=== PATIENT | male | born 1970 ===

== ENCOUNTER 2018-04-05 18:15 | Inpatient (IN) | payer OTHER ==
[2018-04-05 19:11] VITALS: BMI 23.6
[2018-04-05] MEDS ORDERED: Sodium Chloride 0.9% 1,000 ML IV STA ×2 (19:34→20:56)
[2018-04-05] MEDS ORDERED: Piperacill/Tazo 4.5gm in NS 4.5 GM/100 ML BAG IVPB STA (19:34)
[2018-04-05] MEDS ORDERED: Morphine 4 mg/ml ISec IVP STA (19:34)
--- NOTE | 2018-04-05 19:35 | ED PDOC ---
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 Patient stated while using a high pressure water gun, he accidentally sprayed right inner mid thigh. Patient stated wound is very painful. Last tetanus is UKN. Patient denies other somatic complains. Time/Duration: Other (see hpi) Context: Work Past Medical History - Provider Review Nursing Documentation Reviewed: Yes - Psychiatric Hx Substance Use: No Family/Social History - Physician Review Nursing Documentation Reviewed: Yes Family/Social History: Other (noncontributory) Smoking Status: Current Some Days Smoker Hx Alcohol Use: Yes Frequency of alcohol use: Few days per week Hx Substance Use: No Allergies/Home Meds Allergies/Adverse Reactions: Allergies No Known Allergies Allergy (Verified 04/05/18 19:11) Home Medications: Home Meds Medication Instructions Recorded Confirmed No Known Home Med 04/05/18 04/05/18 Review of Systems - Review of Systems Constitutional: Normal. absent: Fatigue, Weight Change, Fevers Eyes: Normal ENT: Normal Respiratory: Normal Cardiovascular: Normal Gastrointestinal: Normal Genitourinary Male: Normal Musculoskeletal: Other (see hpi) Skin: Normal Neurological: Normal Endocrine: Normal Hemo/Lymphatic: Normal Psychiatric: Normal Physical Exam Vital Signs Temp Pulse Resp BP Pulse Ox 04/06/18 03:30 98.6 F 62 16 118/72 99 04/06/18 03:20 98.6 F 62 18 118/72 100 04/06/18 02:35 63 16 115/70 99 04/06/18 01:54 62 18 114/75 97 04/05/18 22:07 98.7 F 77 20 135/83 97 04/05/18 19:28 98.6 F 89 20 135/78 97 Temperature: Afebrile Blood Pressure: Normal Pulse: Regular Respiratory Rate: Normal Appearance: Positive for: Well-Appearing, Non-Toxic, Comfortable Pain Distress: None Mental Status: Positive for: Alert and Oriented X 3 - Systems Exam Head: Present: Atraumatic, Normocephalic Pupils: Present: PERRL Extroacular Muscles: Present: EOMI Conjunctiva: Present: Normal Neck: Present: Normal Range of Motion Respiratory/Chest: Present: Clear to Auscultation, Good Air Exchange. No: Rales , Retracting, Rhonchi Cardiovascular: Present: Regular Rate and Rhythm, Normal S1, S2. No: Murmurs Back: Present: Normal Inspection Upper Extremity: Present: Normal Inspection, Normal ROM Lower Extremity: Present: NORMAL PULSES, Normal ROM, Neurovascularly Intact, Capillary Refill < 2 s, Other (Right mid inner thigh pucture wound, with surrounding hematoma. No compatment syndrome. Tender on palpation. No actively bleeding. Pedist pulses +2, b/l). No: Edema, CALF TENDERNESS Neurological: Present: GCS=15, CN II-XII Intact, Speech Normal, Motor Func Grossly Intact, Normal Sensory Function, Normal Cerebellar Funct, Gait Normal, Memory Normal Skin: Present: Warm, Dry, Normal Color. No: Rashes Psychiatric: Present: Alert, Oriented x 3, Normal Insight, Normal Concentration Medical Decision Making ED Course and Treatment: 04/06/18 00:[address] Carrasco surgical aides teacher regarding thigh injury. Pending CT scan result. She stated she will come to ED to evaluate pt. 04/06/18 00:39 residential appliance repair technician at patient's bedside 04/06/18 01:01 I spoke with medical affairs leader regarding patient injury, and I recommended observation. Re-evaluation Time: 01:08 Reassessment Condition: Re-examined, Improving,but remains with symptoms - Lab Interpretations Microbiology Results: Microbiology Results 04/06/18 12:30 Thigh - Right Gram Stain - Final 04/06/18 12:30 Thigh - Right Wound Culture - Preliminary NO GROWTH AFTER 24 HOURS 04/05/18 20:55 Blood Blood Culture - Preliminary NO GROWTH AFTER 24 HOURS 04/05/18 20:05 Blood Blood Culture - Preliminary NO GROWTH AFTER 24 HOURS Lab Results: 04/06/18 06:20 04/06/18 07:30 Lab Results 04/06/18 11:42: POC Glucose (mg/dL) 197 H 04/06/18 08:00: Total Creatine Kinase 307 H, CK-MB (CK-2) 1.2, CK-MB (CK-2) % Cancelled 04/06/18 07:30: Sodium 138, Potassium 3.7, Chloride 106, Carbon Dioxide 25, Anion Gap 11, BUN 11, Creatinine 0.6 L, Est GFR ( Amer) > 60, Est GFR ( Non-Af Amer) > 60, Random Glucose 225 H, Calcium 8.0 L, Phosphorus 2.7, Magnesium 1.9, Total Bilirubin 0.5, AST 22, ALT 29, Alkaline Phosphatase 108, Total Protein 6.2, Albumin 3.4, Globulin 2.7, Albumin/Globulin Ratio 1.3, Triglycerides 133, Cholesterol 187, LDL Cholesterol Direct 129, HDL Cholesterol 30 04/06/18 07:05: POC Glucose (mg/dL) 230 H 04/06/18 06:20: WBC 7.7 D, RBC 4.21, Hgb 12.9 L D, Hct 36.9 L, MCV 87.6, MCH 30.6, MCHC 35.0, RDW 13.0, Plt Count 176, MPV 10.6, Gran % 59.8, Lymph % (Auto) 32.2, [place] % (Auto) 5.7, Eos % (Auto) 2.2, Baso % (Auto) 0.1, Gran # 4.57, Lymph # (Auto) 2.5, [place] # (Auto) 0.4, Eos # (Auto) 0.2, Baso # (Auto) 0.01 04/06/18 06:20: Hemoglobin A1c 11.9 H 04/06/18 06:20: Procalcitonin 0.06 L 04/06/18 02:46: POC Glucose (mg/dL) 197 H 04/06/18 00:43: POC Glucose (mg/dL) 219 H 04/05/18 20:05: Sodium 136, Potassium 3.9, Chloride 100, Carbon Dioxide 21, Anion Gap 19, BUN 15, Creatinine 0.6 L, Est GFR ( Amer) > 60, Est GFR ( Non-Af Amer) > 60, Random Glucose 328 H*, Calcium 9.4, Magnesium 1.9, Total Bilirubin 0.5, AST 25, ALT 36, Alkaline Phosphatase 161 H, Total Creatine Kinase 356 H, CK-MB (CK-2) 1.4, CK-MB (CK-2) % Cancelled, Total Protein 8.1, Albumin 4.6, Globulin 3.5, Albumin/Globulin Ratio 1.3 04/05/18 20:05: WBC 14.5 H, RBC 4.83, Hgb 15.4, Hct 42.0, MCV 87.0, MCH 31.9, MCHC 36.7, RDW 12.8, Plt Count 205, MPV 10.6, Gran % 82.4 H, Lymph % (Auto) 12.4 L, [place] % (Auto) 4.8, Eos % (Auto) 0.3 L, Baso % (Auto) 0.1, Gran # 11.91 H , Lymph # (Auto) 1.8, [place] # (Auto) 0.7 H, Eos # (Auto) 0.0, Baso # (Auto) 0.02 I have reviewed the lab results: Yes Interpretation: Abnormal lab values (Glucose is elevated) - RAD Interpretation Narrative RAD Interpretations (Text): 04/06/18 01:12 FINDINGS: Bones/joints: No acute findings. No acute fracture. No dislocation. Soft tissues: There is soft tissue gas at the lateral, dorsal, and medial aspects of the distal portions of the vastus medialis muscle. No focal fluid. IMPRESSION: There is soft tissue gas at the lateral, dorsal, and medial aspects of the distal portions of the vastus medialis muscle. No focal fluid. The images do not extend to the level of the knee. Radiology Orders: 04/05/18 19:32 EXT LOWER WITH CONTRAST RIGHT [CT] Stat - Medication Orders Current Medication Orders: Bacitracin (Bacitracin) 1 gm TOP Q12H [facility] Last Admin: 04/07/18 07:46 Dose: 1 applic Comments: Applied by surgical aides teacher Famotidine (Pepcid) 20 mg PO 1000,2200 [facility] Last Admin: 04/07/18 09:05 Dose: 20 mg Glipizide (Glucotrol) 5 mg PO ACB [facility] Last Admin: 04/07/18 10:43 Dose: 5 mg Heparin Sodium (Porcine) (Heparin) 5,000 units SC Q12 [facility] PRN Reason: Protocol Last Admin: 04/07/18 09:05 Dose: 5,000 units Subcutaneous Administrations Document 04/07/18 09:05 IFRAH (Rec: 04/07/18 09:05 IFRAH [id number]) Injection Site MAR Injection Site Right Abdomen Charges for Administration # of Subcutaneous Administrations 1 Piperacillin Sod/Tazobactam Sod (Zosyn 3.375 In Ns 100ml) 100 mls @ 200 mls/hr IVPB Q6 [facility] PRN Reason: Protocol Stop: 04/13/18 18:01 Last Admin: 04/07/18 11:36 Dose: 200 mls/hr eMAR Start Stop Document 04/07/18 11:36 IFRAH (Rec: 04/07/18 11:36 IFRAH [id number]) Intravenous Solution Start Date 04/07/18 Start Time 11:36 Vancomycin HCl (Vancomycin 1gm) 1 gm in 250 mls @ 167 mls/hr IVPB Q12 [facility] PRN Reason: Protocol Last Admin: 04/07/18 09:04 Dose: 167 mls/hr eMAR Start Stop Document 04/07/18 09:04 IFRAH (Rec: 04/07/18 09:04 IFRAH [id number]) Intravenous Solution Start Date 04/07/18 Start Time 09:04 Insulin Human Regular (Humulin R Med) 0 units SC ACHS [facility] PRN Reason: Protocol Last Admin: 04/07/18 11:36 Dose: 3 units [facility] Blood Glucose Document 04/07/18 11:36 IFRAH (Rec: 04/07/18 11:37 IFRA[id number]) Blood Glucose Finger Stick Blood Glucose (70-120) 238 Subcutaneous Administrations Document 04/07/18 11:36 IFRAH (Rec: 04/07/18 11:37 [id number]) Injection Site MAR Injection Site Left Arm Charges for Administration # of Subcutaneous Administrations 1 Oxycodone/Acetaminophen (Percocet 5/325 Mg Tab) 1 tab PO Q4H PRN PRN Reason: Pain, moderate (4-7) Stop: 04/09/18 20:03 Last Admin: 04/07/18 08:39 Dose: 1 tab MAR Pain Assessment Document 04/07/18 08:39 IFRAH (Rec: 04/07/18 08:40 [id number]) Pain Reassessment Is this a pain reassessment? No Presence of Pain Presence of Pain Yes Pain Scale Used Pain Scale Used Numeric Location Left, Right or Bilateral Right Pain Location Body Site Thigh Description Description Intermittent Intensity of Pain at present 7 Re-Assess: MAR Pain Assessment Document 04/07/18 09:39 IFRAH (Rec: 04/07/18 11:37 IF[id number]) Pain Reassessment Is this a pain reassessment? Yes Presence of Pain Presence of Pain No Discontinued Medications Bupivacaine HCl/Epinephrine Bitart (Marcaine-Epi 0.25%) 20 ml IJ ONCE ONE Stop: 04/06/18 09:13 Sodium Chloride (Sodium Chloride 0.9%) 1,000 mls @ 999 mls/hr IV .Q1H1M STA Stop: 04/05/18 20:34 Last Admin: 04/05/18 20:08 Dose: 999 mls/hr eMAR Start Stop Document 04/05/18 20:08 RG (Rec: 04/05/18 20:[address] [id number]) Intravenous Solution Start Date 04/05/18 Start Time 20:08 Piperacillin Sod/Tazobactam Sod (Zosyn 4.5 Gm In Ns 100ml) 4.5 gm in 100 mls @ 200 mls/hr IVPB STAT STA PRN Reason: Protocol Stop: 04/05/18 20:03 Last Admin: 04/05/18 20:06 Dose: 200 mls/hr eMAR Start Stop Document 04/05/18 20:06 RG (Rec: 04/05/18 20:[address] [id number]) Intravenous Solution Start Date 04/05/18 Start Time 20:05 Sodium Chloride (Sodium Chloride 0.9%) 1,000 mls @ 999 mls/hr IV .Q1H1M STA Stop: 04/05/18 21:56 Last Admin: 04/05/18 21:00 Dose: 999 mls/hr eMAR Start Stop Document 04/05/18 21:00 RG (Rec: 04/06/18 02:[address] [id number]) Intravenous Solution Start Date 04/06/18 Start Time 21:00 End Date 04/06/18 End time 22:00 Total Infusion Time 60 Sodium Chloride (Sodium Chloride 0.9%) 1,000 mls @ 100 mls/hr IV .Q10H [facility] Last Admin: 04/06/18 17:05 Dose: 100 mls/hr eMAR Start Stop Document 04/06/18 17:05 SD (Rec: 04/06/18 17:05 SD [id number]) Intravenous Solution Start Date 04/06/18 Start Time 17:05 Vancomycin HCl (Vancomycin 1gm) 1 gm in 250 mls @ 167 mls/hr IVPB DAILY [facility] PRN Reason: Protocol Last Admin: 04/06/18 09:06 Dose: 167 mls/hr eMAR Start Stop Document 04/06/18 09:06 SD (Rec: 04/06/18 09:06 [id number] Intravenous Solution Start Date 04/06/18 Start Time 09:06 End Date 04/06/18 End time 10:36 Total Infusion Time 90 Piperacillin Sod/Tazobactam Sod (Zosyn 3.375 In Ns 100ml) 100 mls @ 200 mls/hr IVPB Q6H [facility] PRN Reason: Protocol Stop: 04/06/18 08:59 Last Admin: 04/06/18 07:49 Dose: 200 mls/hr eMAR Start Stop Document 04/06/18 07:49 SD (Rec: 04/06/18 07:50 SD [id number]) Intravenous Solution Start Date 04/06/18 Start Time 07:49 End Date 04/06/18 End time 08:20 Total Infusion Time 31 Insulin Human Lispro (Humalog) 3 units SC ONCE ONE Stop: 04/06/18 07:30 Last Admin: 04/06/18 07:45 Dose: 3 units MAR Blood Glucose Document 04/06/18 07:45 SD (Rec: 04/06/18 07:45 [id number] Blood Glucose Finger Stick Blood Glucose (70-120) 230 Subcutaneous Administrations Document 04/06/18 07:45 SD (Rec: 04/06/18 07:45 [id number]) Injection Site MAR Injection Site Left Arm Charges for Administration # of Subcutaneous Administrations 1 Morphine Sulfate (Morphine) 4 mg IVP STAT STA Stop: 04/05/18 19:35 Last Admin: 04/05/18 20:00 Dose: 4 mg MAR Pain Assessment Document 04/05/18 20:00 RG (Rec: 04/05/18 20:06 [id number]) Pain Reassessment Is this a pain reassessment? Yes Sleep Is patient sleeping during reassessment? No Presence of Pain Presence of Pain Yes Pain Scale Used Pain Scale Used Numeric Location Left, Right or Bilateral Right Pain Location Body Site Leg Description Description Constant Intensity of Pain at present 7 Pain Behavior Moaning Withdrawal from Touch IVP Administration Document 04/05/18 20:00 RG (Rec: 04/05/18 20:[address] [id number]) Charges for Administration # of IVP Administrations 1 Re-Assess: [facility] Pain Assessment Document 04/05/18 21:00 RG (Rec: 04/05/18 21:[address] [id number]) Pain Reassessment Is this a pain reassessment? Yes Sleep Is patient sleeping during reassessment? Yes Morphine Sulfate (Morphine) 2 mg IVP Q4H PRN PRN Reason: Pain, moderate (4-7) Last Admin: 04/06/18 09:59 Dose: 2 mg [facility] Pain Assessment Document 04/06/18 09:59 SD (Rec: 04/06/18 10:02 SD [id number]) Pain Reassessment Is this a pain reassessment? No Presence of Pain Presence of Pain Yes Pain Scale Used Pain Scale Used Numeric Location Left, Right or Bilateral Right Pain Location Body Site Thigh Description Description Intermittent Intensity of Pain at present 4 IVP Administration Document 04/06/18 09:59 SD (Rec: 04/06/18 10:02 SD [id number]) Charges for Administration # of IVP Administrations 1 Re-Assess: [facility] Pain Assessment Document 04/06/18 10:59 SD (Rec: 04/06/18 11:26 SD [id number]) Pain Reassessment Is this a pain reassessment? Yes Sleep Is patient sleeping during reassessment? Yes Ondansetron HCl (Zofran Inj) 4 mg IVP STAT STA Stop: 04/05/18 19:36 Last Admin: 04/05/18 20:01 Dose: 4 mg IVP Administration Document 04/05/18 20:01 (Rec: 04/05/18 20:[address] [id number]) Charges for Administration # of IVP Administrations 1 Tetanus/Reduced Diphtheria/Acell Pertussis (Boostrix Vaccine Inj) 0.5 ml IM .ONCE ONE Stop: 04/05/18 19:37 Last Admin: 04/05/18 20:10 Dose: 0.5 ml Immunization Registry Document 04/05/18 20:10 (Rec: 04/05/18 20:[address] [id number]) Immunization Registry Consent Date 04/05/18 Disposition/Present on Arrival - Present on Arrival Any Indicators Present on Arrival: No History of DVT/PE: No History of Uncontrolled Diabetes: No Urinary Catheter: No History of Decub. Ulcer: No History Surgical Site Infection Following: None - Disposition Have Diagnosis and Disposition been Completed?: Yes Diagnosis: Pressure injury of deep tissue of right thigh, Intractable pain, Elevated glucose Disposition: HOSPITALIZED Disposition Time: 01:11 Patient Plan: Admission Patient Problems: Current Active Problems Problem Status Onset Elevated glucose Acute Intractable pain Acute Pressure injury of deep tissue of right thigh Acute Condition: STABLE
[2018-04-05] MEDS ORDERED: TDAP Vaccine 0.5 mL Syr IM ONE (19:36)
[2018-04-05 20:15] LABS: BASO # 0.02 K/mm3 (0.0-2.0); BASO % 0.1 % (0.0-3.0); EOS % 0.3 % (1.5-5.0); GRAN # 11.91 (1.4-6.5); GRAN % 82.4 % (50.0-68.0); HEMOGLOBIN 15.4 g/dL (14.0-18.0); LYMPH # 1.8 (1.2-3.4); LYMPH % 12.4 % (22.0-35.0); MEAN CORPUSCULAR HEMOGLOBIN 31.9 pg (25.0-35.0); MEAN CORPUSCULAR HGB CONC 36.7 g/dl (31.0-37.0); MEAN PLATELET VOLUME 10.6 fl (7.0-11.0); MONO # 0.7 (0.1-0.6); MONO % 4.8 % (1.0-6.0); RBC 4.83 10^6/uL (3.5-6.1); RED CELL DISTRIBUTION WIDTH 12.8 % (11.5-14.5); WHITE BLOOD COUNT 14.5 10^3/ul (4.5-11.0)
[2018-04-05 20:41] LABS: ALB/GLOB RATIO 1.3 (1.1-1.8); ALBUMIN 4.6 g/dL (3.0-4.8); ALT/SGPT 36 U/L (7-56); AST/SGOT 25 U/L (17-59); BLOOD UREA NITROGEN 15 mg/dL (7-21); CALCIUM 9.4 mg/dL (8.4-10.5); GFR AFRICAN-AMERICAN > 60; GFR NON-AFRICAN AMERICAN > 60
[2018-04-05 20:58] LABS: CK-MB 1.4 ng/mL (0.0-3.6)
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
[2018-04-06] MEDS ORDERED: Piperacillin/Tazobact 3.375 gm 100 ML IVPB SCH (02:30)
[2018-04-06] MEDS: Sodium Chloride 0.9% 1,000 ML IV SCH ×2 (02:42→17:05)
--- NOTE | 2018-04-06 02:42 | CP.PCM.HP ---
<Joseph Perera - Last Filed: 04/06/18 04:35> History of Present Illness - History of Present Illness History of Present Illness: Joseph Perera, PGY-1 History and Physical for Hospitalist Service CC: R inner thigh pain HPI: 48 year old Iranian speaking M with no significant past medical history and no past visits to a physician, who presents to [facility] with a traumatic wound to the right medial thigh. 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 He lost control of the high pressure firer yesterday afternoon and the water stream hit his right medial thigh creating a traumatic injury with bleeding and sharp pain rated as 13/10 at time of presentation. The pain radiates medially down to the mid-calf but stops there. He was given morphine in the ED which has brought his pain down to a 7/10. Patient states that bleeding has mostly subsided at this point. He has difficulty ambulating and putting pressure on the right leg. He denies any numbness or tingling in the right lower extremity. Denies chest pain, palpitations, shortness of breath, cough, fever, chills, nausea, vomiting, diarrhea, abdominal pain, or urinary symptoms. In the ED, patient received morphine, Zofran, Zosyn, and a TDAP vaccine. CT of the RLE showed soft tissue gas in the lateral, dorsal and medial aspects of the vastus medialis. No fluid was found. PMH: none PSH: none ALL: NKDA Social Hx: smokes 1-2 packs per week. Occasionally smokes marijuana. Denies alcohol use and IVDU Fam Hx: unknown Meds: none No PMD Present on Admission - Present on Admission Any Indicators Present on Admission: No Review of Systems - Review of Systems All systems: reviewed and no additional remarkable complaints except Review of Systems: 12 point ROS was completed and negative excet as described in HPI. Past Patient History - Past Social History Smoking Status: Current Some Days Smoker - PSYCHIATRIC Hx Substance Use: No - SURGICAL HISTORY Hx Surgeries: No Meds Allergies/Adverse Reactions: Allergies Allergy/AdvReac Type Severity Reaction Status Date / Time No Known Allergies Allergy Verified 04/05/18 19:11 Physical Exam - Constitutional Appears: Non-toxic, No Acute Distress - Head Exam Head Exam: ATRAUMATIC, NORMAL INSPECTION, NORMOCEPHALIC - Eye Exam Eye Exam: EOMI, Normal appearance Pupil Exam: PERRL - ENT Exam ENT Exam: Mucous Membranes Moist, Normal Exam - Neck Exam Neck exam: Positive for: Normal Inspection - Respiratory Exam Respiratory Exam: Clear to Auscultation Bilateral, NORMAL BREATHING PATTERN. absent: Rhonchi, Wheezes, Respiratory Distress, Stridor - Cardiovascular Exam Cardiovascular Exam: RRR, +S1, +S2 - GI/Abdominal Exam GI & Abdominal Exam: Normal Bowel Sounds, Soft. absent: Tenderness - Extremities Exam Additional comments: On R medial thigh at knee, 2x1 cm open wound is visible. No active bleeding. Bandaged but not sutured. Tender to palpation. Full nonpainful ROM of toes and ankle in dorsiflexion and plantarflexion. - Back Exam Back exam: NORMAL INSPECTION. absent: tenderness - Neurological Exam Neurological exam: Abnormal Gait, Alert, Oriented x3 Additional comments: RLE: Palpable DP, PT, and popliteal pulses bilaterally Normal capillary refill ( <2 seconds) Muscle strength 5/5 in LE bilaterally Sensation intact bilaterally throughout both LE - Psychiatric Exam Psychiatric exam: Normal Affect, Normal Mood - Skin Skin Exam: Dry, Intact, Normal Color, Warm (except as described for RLE) Results - Vital Signs Recent Vital Signs: Last Vital Signs Temp 98.6 F 04/05/18 19:28 Pulse 89 04/05/18 19:28 Resp 20 04/05/18 19:28 BP 135/78 04/05/18 19:28 Pulse Ox 97 04/05/18 19:28 - Labs Result Diagrams: 04/05/18 20:05 04/05/18 20:05 Assessment & Plan - Assessment and Plan (Free Text) Assessment: 48 year old M with no significant PMHx who presents with painful open injury to the right medial thigh 2/2 accident at work. Plan: Exposed R medial thigh wound - CT of the LE: soft tissue gas noted in the lateral, dorsal, and medial aspects of vastus medialis muscle. soft tissue swelling. No fluid. - Alk Phos 161, CK 356 - Continue with pain control with Morphine - Continue with broad spectrum IV antibiotics Vanc and Zosyn - ID, Dr. Groves consulted, recommendations appreciated - Surgery, Dr. Pope consulted - Dressing changes as needed - Continue to elevate the right lower extremity - f/u urine and blood cx Leukocytosis WBC 14.5 no baseline available may be secondary to stress vs infection at wound site afebrile, VSS, no active bleeding, hemodynamically stable f/u AM labs f/u Procal NS @ 100 cc/hr Hyperglycemia 328, 197 on repeat patient admits to consuming large regular soda immediately before coming to ED denies neuropathy, changes in vision, headaches accuchecks in place to monitor will f/u a1c and lipid panel, Mg and Phos CLD GI/DVT ppx Pepcid 20 BID Heparin 5000 BID to start in AM (Makenzie score of 5) Patient seen, case discussed, and plan reviewed with Dr. Garcia. Joseph Perera, PGY-1 <Donald Garcia N - Last Filed: 04/07/18 03:11> Results - Vital Signs Recent Vital Signs: Last Vital Signs Temp 99.2 F 04/06/18 22:30 Pulse 83 04/06/18 22:30 Resp 18 04/06/18 22:30 BP 131/79 04/06/18 22:30 Pulse Ox 98 04/06/18 22:30 - Labs Result Diagrams: 04/06/18 06:20 04/06/18 07:30 Labs: Laboratory Results - last 24 hr 04/06/18 04/06/18 16:14 21:37 POC Glucose (mg/dL) 216 H Urine Color Light yellow Urine Appearance Clear Urine pH 6.5 Ur Specific [place] 1.010 Urine Protein Negative Urine Glucose (UA) 500 H Urine Ketones Negative Urine Blood Trace-intact H Urine Nitrate Negative Urine Bilirubin Negative Urine Urobilinogen 0.2 Ur Leukocyte Esterase Negative Urine RBC 0 - 2 Urine WBC 0 - 2 Ur Epithelial Cells 0 - 2 Urine Bacteria Few
[2018-04-06] MEDS: Morphine 2 mg/ml ISec IVP PRN ×2 (06:20→09:59)
[2018-04-06 07:16] LABS: BASO # 0.01 K/mm3 (0.0-2.0); BASO % 0.1 % (0.0-3.0); EOS # 0.2 (0.0-0.7); EOS % 2.2 % (1.5-5.0); GRAN # 4.57 (1.4-6.5); GRAN % 59.8 % (50.0-68.0); LYMPH # 2.5 (1.2-3.4); LYMPH % 32.2 % (22.0-35.0); MEAN CELL VOLUME 87.6 fl (80.0-105.0); MEAN CORPUSCULAR HEMOGLOBIN 30.6 pg (25.0-35.0); MEAN PLATELET VOLUME 10.6 fl (7.0-11.0); MONO # 0.4 (0.1-0.6); MONO % 5.7 % (1.0-6.0); RBC 4.21 10^6/uL (3.5-6.1); WHITE BLOOD COUNT 7.7 10^3/ul (4.5-11.0)
[2018-04-06 07:17] LABS: HEMOGLOBIN 12.9 g/dL (14.0-18.0)
[2018-04-06] MEDS ORDERED: Insulin Lispro 1 UNITS/0.01 ML SC ONE (07:29)
[2018-04-06] MEDS ORDERED: Insulin Lispro (HUMAlog) HIGH Coverage SC SCH (07:30)
[2018-04-06] MEDS: Insulin Reg-MEDIUM-Coverage SC SCH ×4 (07:46→21:40)
[2018-04-06 08:20] LABS: ALB/GLOB RATIO 1.3 (1.1-1.8); ALBUMIN 3.4 g/dL (3.0-4.8); ALT/SGPT 29 U/L (7-56); AST/SGOT 22 U/L (17-59); BLOOD UREA NITROGEN 11 mg/dL (7-21); GFR AFRICAN-AMERICAN > 60; GFR NON-AFRICAN AMERICAN > 60; HDL CHOLESTEROL 30 mg/dL (29-60)
[2018-04-06 08:29] LABS: LDL CHOLESTEROL 129 mg/dL (0-129)
[2018-04-06] MEDS ORDERED: Bupivacaine-Epi 0.25%-1:200,000 PF Inj IJ ONE (09:12)
[2018-04-06 09:31] LABS: CK-MB 1.2 ng/mL (0.0-3.6)
[2018-04-06] MEDS ORDERED: Vancomycin 1gm in NS 250ml 1 GM/250 ML BAG IVPB SCH (10:00)
--- NOTE | 2018-04-06 12:36 | PCM.PROC ---
Procedure: Blank - Time Time Performed: 10:35 - Time Out Time Out: Patient ID confirmed - Procedure Procedure:: Wound Debridement - Consent obtained: Consent obtained: Written - Indications Indications(s):: Nonviable tissue in wound bed - Contraindications: Contraindications:: None - Anesthetic Technique Anesthetic Technique: Local - Topical: Local/Regional Anesthetic:: Other (10cc Bupivicane 0.25% with epinephrin) - Location Location: Right, Thigh - Result Result: Successful - Post-Procedure Post-procedure:: Hemostasis achieved, Dressing applied - Patient Tolerated Procedure Patient Tolerated Procedure:: Well
--- NOTE | 2018-04-06 13:25 | CP.PCM.CON ---
<Lorraine Payne - Last Filed: 04/06/18 13:23> History of Present Illness - History of Present Illness History of Present Illness: PGY-2 Infectious disease consult note for Dr. Groves' service 48 year old [place] speaking male with no significant past medical history and no past visits to a physician, who presented with a traumatic wound to the right medial thigh. Clinical Nurse Occupational Medicine used, #[id number]. 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 Yesterday afternoon, he lost control of the filter washer and presser and the water stream hit his right medial thigh creating a traumatic injury with bleeding and sharp pain radiating medially down to the mid-calf and laterally aspect of his thigh. He denies any difficulty ambulating and putting pressure on the right leg this morning but reports that it was painful yesterday. He denies any numbness, tingling or loss od senstaion in the right lower extremity. Denies chest pain, palpitations, shortness of breath, cough, fever, chills, nausea, vomiting, diarrhea, abdominal pain, or urinary symptoms. PMH: none PSH: none ALL: NKDA Social History: smokes 1-2 packs per week, occasionally marijuana use, denies alcohol use Review of Systems - Review of Systems All systems: reviewed and no additional remarkable complaints except Past Patient History - Past Social History Smoking Status: Light Smoker < 10 Cigarettes Daily - CARDIAC Hx Cardiac Disorders: No - PULMONARY Hx Respiratory Disorders: No - NEUROLOGICAL Hx Neurological Disorder: No - HEENT Hx HEENT Problems: No - RENAL Hx Chronic Kidney Disease: No - ENDOCRINE/METABOLIC Other/Comment: FBG 328 on admission, no Dx of DM - HEMATOLOGICAL/ONCOLOGICAL Hx Blood Disorders: No - INTEGUMENTARY Hx Dermatological Problems: No - MUSCULOSKELETAL/RHEUMATOLOGICAL Hx Falls: No - GASTROINTESTINAL Hx Gastrointestinal Disorders: No - GENITOURINARY/GYNECOLOGICAL Hx Genitourinary Disorders: No - PSYCHIATRIC Hx Psychophysiologic Disorder: No Hx Substance Use: Yes (occasional marijuana) - SURGICAL HISTORY Hx Surgeries: No Meds Allergies/Adverse Reactions: Allergies Allergy/AdvReac Type Severity Reaction Status Date / Time No Known Allergies Allergy Verified 04/05/18 19:11 - Medications Medications: Current Medications Famotidine (Pepcid) 20 mg PO 1000,2200 [facility] Last Admin: 04/06/18 09:07 Dose: 20 mg Heparin Sodium (Porcine) (Heparin) 5,000 units SC Q12 [facility] PRN Reason: Protocol Last Admin: 04/06/18 09:07 Dose: 5,000 units Sodium Chloride (Sodium Chloride 0.9%) 1,000 mls @ 100 mls/hr IV .Q10H [facility] Last Admin: 04/06/18 02:42 Dose: 100 mls/hr Piperacillin Sod/Tazobactam Sod (Zosyn 3.375 In Ns 100ml) 100 mls @ 200 mls/hr IVPB Q6 [facility] PRN Reason: Protocol Stop: 04/13/18 18:01 Vancomycin HCl (Vancomycin 1gm) 1 gm in 250 mls @ 167 mls/hr IVPB Q12 [facility] PRN Reason: Protocol Insulin Human Lispro (Humalog Low) 0 units SC ACHS [facility] PRN Reason: Protocol Insulin Human Regular (Humulin R Med) 0 units SC [facility] PRN Reason: Protocol Last Admin: 04/06/18 07:46 Dose: 3 units Morphine Sulfate (Morphine) 2 mg IVP Q4H PRN PRN Reason: Pain, moderate (4-7) Last Admin: 04/06/18 09:59 Dose: 2 mg Physical Exam - Constitutional Appears: Well, No Acute Distress - Head Exam Head Exam: ATRAUMATIC, NORMAL INSPECTION, NORMOCEPHALIC - Eye Exam Eye Exam: Normal appearance - ENT Exam ENT Exam: Mucous Membranes Moist - Respiratory Exam Respiratory Exam: Clear to Auscultation Bilateral, NORMAL BREATHING PATTERN. absent: Rhonchi, Wheezes, Respiratory Distress - Cardiovascular Exam Cardiovascular Exam: REGULAR RHYTHM, +S1, +S2. absent: Bradycardia, Tachycardia , Systolic Murmur - GI/Abdominal Exam GI & Abdominal Exam: Normal Bowel Sounds, Soft. absent: Diminished Bowel Sounds , Distended, Firm, Guarding, Tenderness - Extremities Exam Additional comments: right medial thigh above knee, 2x1 cm open wound is visible. Bandaged but not sutured. Tender to palpation. Full nonpainful ROM of toes and ankle. Full ROM of knee with pain - Neurological Exam Neurological exam: Alert, Oriented x3 - Psychiatric Exam Psychiatric exam: Normal Affect, Normal Mood Results - Vital Signs Recent Vital Signs: Last Vital Signs Temp 98.9 F 04/06/18 13:01 Pulse 65 04/06/18 13:01 Resp 20 04/06/18 13:01 BP 106/67 04/06/18 13:01 Pulse Ox 98 04/06/18 13:01 - Labs Result Diagrams: 04/06/18 06:20 04/06/18 07:30 Labs: Laboratory Results - last 24 hr 04/06/18 04/06/18 04/06/18 02:46 06:20 06:20 WBC 7.7 D RBC 4.21 Hgb 12.9 L D Hct 36.9 L MCV 87.6 MCH 30.6 MCHC 35.0 RDW 13.0 Plt Count 176 MPV 10.6 Gran % 59.8 Lymph % (Auto) 32.2 [place] % (Auto) 5.7 Eos % (Auto) 2.2 Baso % (Auto) 0.1 Gran # 4.57 Lymph # (Auto) 2.5 [place] # (Auto) 0.4 Eos # (Auto) 0.2 Baso # (Auto) 0.01 Sodium Potassium Chloride Carbon Dioxide Anion Gap BUN Creatinine Est GFR ( Amer) Est GFR (Non-Af Amer) POC Glucose (mg/dL) 197 H Random Glucose Hemoglobin A1c 11.9 H Calcium Phosphorus Magnesium Total Bilirubin AST ALT Alkaline Phosphatase Total Creatine Kinase CK-MB (CK-2) CK-MB (CK-2) % Total Protein Albumin Globulin Albumin/Globulin Ratio Triglycerides Cholesterol LDL Cholesterol Direct HDL Cholesterol 04/06/18 04/06/18 04/06/18 07:05 07:30 08:00 WBC RBC Hgb Hct MCV MCH MCHC RDW Plt Count MPV Gran % Lymph % (Auto) [place] % (Auto) Eos % (Auto) Baso % (Auto) Gran # Lymph # (Auto) [place] # (Auto) Eos # (Auto) Baso # (Auto) Sodium 138 Potassium 3.7 Chloride 106 Carbon Dioxide 25 Anion Gap 11 BUN 11 Creatinine 0.6 L Est GFR ( Amer) > 60 Est GFR (Non-Af Amer) > 60 POC Glucose (mg/dL) 230 H Random Glucose 225 H Hemoglobin A1c Calcium 8.0 L Phosphorus 2.7 Magnesium 1.9 Total Bilirubin 0.5 AST 22 ALT 29 Alkaline Phosphatase 108 Total Creatine Kinase 307 H CK-MB (CK-2) 1.2 CK-MB (CK-2) % Cancelled Total Protein 6.2 Albumin 3.4 Globulin 2.7 Albumin/Globulin Ratio 1.3 Triglycerides 133 Cholesterol 187 LDL Cholesterol Direct 129 HDL Cholesterol 30 04/06/18 11:42 WBC RBC Hgb Hct MCV MCH MCHC RDW Plt Count MPV Gran % Lymph % (Auto) [place] % (Auto) Eos % (Auto) Baso % (Auto) Gran # Lymph # (Auto) [place] # (Auto) Eos # (Auto) Baso # (Auto) Sodium Potassium Chloride Carbon Dioxide Anion Gap BUN Creatinine Est GFR ( Amer) Est GFR (Non-Af Amer) POC Glucose (mg/dL) 197 H Random Glucose Hemoglobin A1c Calcium Phosphorus Magnesium Total Bilirubin AST ALT Alkaline Phosphatase Total Creatine Kinase CK-MB (CK-2) CK-MB (CK-2) % Total Protein Albumin Globulin Albumin/Globulin Ratio Triglycerides Cholesterol LDL Cholesterol Direct HDL Cholesterol Assessment & Plan - Assessment and Plan (Free Text) Assessment: 48 year old [place] speaking male with no significant past medical history and no past visits to a physician, who presented with a traumatic wound to the right medial thigh.In the ED, patient received TDAP vaccine. CT of the RLE showed soft tissue gas in the lateral, dorsal and medial aspects of the vastus medialis. Recommend surgical consult for soft tissue gas seen on CT. Continue zosyn and vancomycin. Follow up wound cultures, blood and urine cultures. case seen and discussed with Dr. Groves <Max Groves - Last Filed: 04/06/18 15:00> Meds - Medications Medications: Current Medications Famotidine (Pepcid) 20 mg PO 1000,2200 [facility] Last Admin: 04/06/18 09:07 Dose: 20 mg Heparin Sodium (Porcine) (Heparin) 5,000 units SC Q12 [facility] PRN Reason: Protocol Last Admin: 04/06/18 09:07 Dose: 5,000 units Sodium Chloride (Sodium Chloride 0.9%) 1,000 mls @ 100 mls/hr IV .Q10H [facility] Last Admin: 04/06/18 02:42 Dose: 100 mls/hr Piperacillin Sod/Tazobactam Sod (Zosyn 3.375 In Ns 100ml) 100 mls @ 200 mls/hr IVPB Q6 [facility] PRN Reason: Protocol Stop: 04/13/18 18:01 Vancomycin HCl (Vancomycin 1gm) 1 gm in 250 mls @ 167 mls/hr IVPB Q12 [facility] PRN Reason: Protocol Insulin Human Regular (Humulin R Med) 0 units SC ACHS [facility] PRN Reason: Protocol Last Admin: 04/06/18 13:36 Dose: Not Given Morphine Sulfate (Morphine) 2 mg IVP Q4H PRN PRN Reason: Pain, moderate (4-7) Last Admin: 04/06/18 09:59 Dose: 2 mg Results - Vital Signs Recent Vital Signs: Last Vital Signs Temp 98.9 F 04/06/18 13:01 Pulse 65 04/06/18 13:01 Resp 20 04/06/18 13:01 BP 106/67 04/06/18 13:01 Pulse Ox 98 04/06/18 13:01 - Labs Result Diagrams: 04/06/18 06:20 04/06/18 07:30 Labs: Laboratory Results - last 24 hr 04/06/18 04/06/18 04/06/18 02:46 06:20 06:20 WBC RBC Hgb Hct MCV MCH MCHC RDW Plt Count MPV Gran % Lymph % (Auto) [place] % (Auto) Eos % (Auto) Baso % (Auto) Gran # Lymph # (Auto) [place] # (Auto) Eos # (Auto) Baso # (Auto) Sodium Potassium Chloride Carbon Dioxide Anion Gap BUN Creatinine Est GFR ( Amer) Est GFR (Non-Af Amer) POC Glucose (mg/dL) 197 H Random Glucose Hemoglobin A1c 11.9 H Calcium Phosphorus Magnesium Total Bilirubin AST ALT Alkaline Phosphatase Total Creatine Kinase CK-MB (CK-2) CK-MB (CK-2) % Total Protein Albumin Globulin Albumin/Globulin Ratio Triglycerides Cholesterol LDL Cholesterol Direct HDL Cholesterol Procalcitonin 0.06 L 04/06/18 04/06/18 04/06/18 06:20 07:05 07:30 WBC 7.7 D RBC 4.21 Hgb 12.9 L D Hct 36.9 L MCV 87.6 MCH 30.6 MCHC 35.0 RDW 13.0 Plt Count 176 MPV 10.6 Gran % 59.8 Lymph % (Auto) 32.2 [place] % (Auto) 5.7 Eos % (Auto) 2.2 Baso % (Auto) 0.1 Gran # 4.57 Lymph # (Auto) 2.5 [place] # (Auto) 0.4 Eos # (Auto) 0.2 Baso # (Auto) 0.01 Sodium 138 Potassium 3.7 Chloride 106 Carbon Dioxide 25 Anion Gap 11 BUN 11 Creatinine 0.6 L Est GFR ( Amer) > 60 Est GFR (Non-Af Amer) > 60 POC Glucose (mg/dL) 230 H Random Glucose 225 H Hemoglobin A1c Calcium 8.0 L Phosphorus 2.7 Magnesium 1.9 Total Bilirubin 0.5 AST 22 ALT 29 Alkaline Phosphatase 108 Total Creatine Kinase CK-MB (CK-2) CK-MB (CK-2) % Total Protein 6.2 Albumin 3.4 Globulin 2.7 Albumin/Globulin Ratio 1.3 Triglycerides 133 Cholesterol 187 LDL Cholesterol Direct 129 HDL Cholesterol 30 Procalcitonin 04/06/18 04/06/18 08:00 11:42 WBC RBC Hgb Hct MCV MCH MCHC RDW Plt Count MPV Gran % Lymph % (Auto) [place] % (Auto) Eos % (Auto) Baso % (Auto) Gran # Lymph # (Auto) [place] # (Auto) Eos # (Auto) Baso # (Auto) Sodium Potassium Chloride Carbon Dioxide Anion Gap BUN Creatinine Est GFR ( Amer) Est GFR (Non-Af Amer) POC Glucose (mg/dL) 197 H Random Glucose Hemoglobin A1c Calcium Phosphorus Magnesium Total Bilirubin AST ALT Alkaline Phosphatase Total Creatine Kinase 307 H CK-MB (CK-2) 1.2 CK-MB (CK-2) % Cancelled Total Protein Albumin Globulin Albumin/Globulin Ratio Triglycerides Cholesterol LDL Cholesterol Direct HDL Cholesterol Procalcitonin Assessment & Plan - Assessment and Plan (Free Text) Assessment: Infectious Diseases Attending Physician Addendum Patient seen and examined, discussed with medical assisting program director. I have reviewed the pertinent clinical information for the patient, including history of present illness, medical, personal and social histories, lab results and imaging findings. I agree with the above findings, assessment and plan. In addition, we have started IV Vancomycin and Zosyn for this patient with right thigh skin and skin structure infection associated with trauma, S/P debridement. Follow up blood and urine cx. Patient received TDaP in the ED.
--- NOTE | 2018-04-06 13:28 | CT ---
Date of service: 04/05/2018 PROCEDURE: CT of the right lower extremity with contrast HISTORY: right lower extremity COMPARISON: TECHNIQUE: Radiation dose: Total exam DLP = 501 mGy-cm. This CT exam was performed using one or more of the following dose reduction techniques: Automated exposure control, adjustment of the mA and/or kV according to patient size, and/or use of iterative reconstruction technique. FINDINGS: There is a laceration along the medial aspect of the distal thigh. There is a large amount of air in the tissue planes surrounding the quadriceps muscles distally. There is no focal abscess. There is no evidence of fracture. The report concurs with the preliminary [facility] report IMPRESSION: There is a laceration along the medial aspect of the distal thigh. There is a large amount of air in the tissue planes surrounding the quadriceps muscles distally.
[2018-04-06] MEDS ORDERED: Insulin Lispro (humaLOG) LOW Coverage SC SCH (16:30)
[2018-04-06] MEDS: Piperacillin/Tazobact 3.375 gm 100 ML IVPB SCH (17:10)
[2018-04-06] MEDS ORDERED: Bacitracin 500 Units/gm Oint Foilpak UD ONE (19:01)
[2018-04-06] MEDS: Bacitracin Ointment 30 GM TUBE TOP SCH (19:13)
[2018-04-06] MEDS: Vancomycin 1gm in NS 250ml 1 GM/250 ML BAG IVPB SCH (21:38)
[2018-04-06] MEDS: Oxycodone/Acetaminophen 5/325 mg Tab PO PRN (21:39)
[2018-04-06 22:03] LABS: PH,URINE 6.5 (4.7-8.0); URINE APPEARANCE CLEAR (CLEAR); URINE BILIRUBIN NEGATIVE (NEGATIVE); URINE BLOOD TRACE-INTACT (NEGATIVE); URINE COLOR LIGHT YELLOW (YELLOW); URINE GLUCOSE (UA) 500 mg/dL (NEGATIVE); URINE LEUKOCYTE ESTERASE NEGATIVE Leu/uL (NEGATIVE); URINE PROTEIN NEGATIVE mg/dL (<30 mg/dL); URINE UROBILINOGEN 0.2 E.U./dL (<1 E.U./dL)
[2018-04-06 22:08] LABS: URINE BACTERIA FEW (NEG); URINE EPITHELIAL CELLS 0 - 2 /hpf (0-5); URINE RBC 0 - 2 /hpf (0-2); URINE WBC 0 - 2 /hpf (0-6)
[2018-04-07] MEDS: Piperacillin/Tazobact 3.375 gm 100 ML IVPB SCH ×4 (02:24→17:20)
[2018-04-07 06:51] LABS: BASO # 0.01 K/mm3 (0.0-2.0); BASO % 0.2 % (0.0-3.0); EOS # 0.1 (0.0-0.7); GRAN # 3.44 (1.4-6.5); HEMOGLOBIN 12.4 g/dL (14.0-18.0); LYMPH # 2.2 (1.2-3.4); LYMPH % 35.8 % (22.0-35.0); MEAN CELL VOLUME 88.8 fl (80.0-105.0); MEAN CORPUSCULAR HEMOGLOBIN 31.5 pg (25.0-35.0); MEAN CORPUSCULAR HGB CONC 35.4 g/dl (31.0-37.0); MEAN PLATELET VOLUME 10.2 fl (7.0-11.0); MONO # 0.3 (0.1-0.6); RBC 3.94 10^6/uL (3.5-6.1); RED CELL DISTRIBUTION WIDTH 12.9 % (11.5-14.5)
[2018-04-07 07:08] LABS: ALB/GLOB RATIO 1.1 (1.1-1.8); ALBUMIN 3.1 g/dL (3.0-4.8); ALT/SGPT 27 U/L (7-56); AST/SGOT 25 U/L (17-59); BLOOD UREA NITROGEN 8 mg/dL (7-21); CALCIUM 8.1 mg/dL (8.4-10.5); GFR AFRICAN-AMERICAN > 60; GFR NON-AFRICAN AMERICAN > 60
[2018-04-07] MEDS: Bacitracin Ointment 30 GM TUBE TOP SCH ×2 (07:46→19:57)
[2018-04-07] MEDS: Insulin Reg-MEDIUM-Coverage SC SCH ×4 (07:47→21:20)
--- NOTE | 2018-04-07 07:58 | CP.PCM.PN ---
Subjective - Date & Time of Evaluation Date of Evaluation: 04/07/18 Time of Evaluation: 07:45 - Subjective Subjective: General Surgery Progress Note for Dr. Pepe Pope 48M seen and evaluated at bedside this morning. No acute events overnight. Patient complaints of pain around his knee. He has been able to ambulate. Dressings were changed this morning. Denies fever, chills, nausea, vomiting, shortness of breath, chest pain, palpitations, or urinary symptoms. Objective - Vital Signs/Intake and Output Vital Signs (last 24 hours): Temp Pulse Resp BP Pulse Ox 99.2 F 83 18 131/79 98 04/06/18 22:30 04/06/18 22:30 04/06/18 22:30 04/06/18 22:30 04/06/18 22:30 - Medications Medications: Current Medications Bacitracin (Bacitracin) 1 gm TOP Q12H [facility] Last Admin: 04/06/18 19:13 Dose: 1 applic Famotidine (Pepcid) 20 mg PO 1000,2200 [facility] Last Admin: 04/06/18 21:41 Dose: 20 mg Heparin Sodium (Porcine) (Heparin) 5,000 units SC Q12 [facility] PRN Reason: Protocol Last Admin: 04/06/18 21:38 Dose: 5,000 units Piperacillin Sod/Tazobactam Sod (Zosyn 3.375 In Ns 100ml) 100 mls @ 200 mls/hr IVPB Q6 [facility] PRN Reason: Protocol Stop: 04/13/18 18:01 Last Admin: 04/07/18 05:10 Dose: 200 mls/hr Vancomycin HCl (Vancomycin 1gm) 1 gm in 250 mls @ 167 mls/hr IVPB Q12 [facility] PRN Reason: Protocol Last Admin: 04/06/18 21:38 Dose: 167 mls/hr Insulin Human Regular (Humulin R Med) 0 units SC ACHS [facility] PRN Reason: Protocol Last Admin: 04/06/18 21:40 Dose: 3 units Oxycodone/Acetaminophen (Percocet 5/325 Mg Tab) 1 tab PO Q4H PRN PRN Reason: Pain, moderate (4-7) Stop: 04/09/18 20:03 Last Admin: 04/06/18 21:39 Dose: 1 tab - Labs Labs: 04/07/18 06:15 04/07/18 06:15 - Constitutional Appears: Well, Non-toxic, No Acute Distress - Head Exam Head Exam: ATRAUMATIC, NORMAL INSPECTION, NORMOCEPHALIC - Eye Exam Eye Exam: EOMI Pupil Exam: PERRL - ENT Exam ENT Exam: Mucous Membranes Moist - Respiratory Exam Respiratory Exam: Clear to Ausculation Bilateral, NORMAL BREATHING PATTERN. absent: Wheezes - Cardiovascular Exam Cardiovascular Exam: REGULAR RHYTHM, +S1, +S2. absent: Murmur - GI/Abdominal Exam GI & Abdominal Exam: Soft, Normal Bowel Sounds. absent: Tenderness - Neurological Exam Neurological Exam: Alert, Awake, Oriented x3 - Psychiatric Exam Psychiatric exam: Normal Affect, Normal Mood - Skin Additional comments: dressings c/d/i right medial thigh edematous, erythematous and tender to palpation minimal sanguinous drainage palpable DP, PT and popliteal pulses bilaterally Limited range of motion of the right knee Assessment and Plan - Assessment and Plan (Free Text) Assessment: 48M w/ no significant PMH, presents with high pressure water injection injury to the right medial thigh s/p debridement 04/06/18 Plan: - Continue with pain control - Continue with broad spectrum IV antibiotics, consider switching to PO - ID consulted - Received tetanus in the ED - Dressing changes with Telfa and Bacitracin - Medical management per primary team - No further surgical intervention at this present time Bart Carrasco PGY1
[2018-04-07] MEDS: Oxycodone/Acetaminophen 5/325 mg Tab PO PRN (08:39)
[2018-04-07] MEDS: Vancomycin 1gm in NS 250ml 1 GM/250 ML BAG IVPB SCH ×2 (09:04→21:13)
--- NOTE | 2018-04-07 13:43 | CP.PCM.PN ---
<Adam Perry - Last Filed: 04/07/18 20:14> Subjective - Date & Time of Evaluation Date of Evaluation: 04/07/18 Time of Evaluation: 08:15 - Subjective Subjective: Adam Perry D.O PGY1 Internal Medicine Progress Note for Dr. Frost Patient seen and examined at bedside. No significant overnight events. Patient' s right thigh pain is improving. He is able to ambulate. He denies fever, chills , chest pain, palpitations, or urinary symptoms, N/V, SOB. Objective - Vital Signs/Intake and Output Vital Signs (last 24 hours): Temp Pulse Resp BP Pulse Ox 98.3 F 59 L 20 112/67 99 04/07/18 06:00 04/07/18 06:00 04/07/18 06:00 04/07/18 06:00 04/07/18 06:00 - Medications Medications: Current Medications Bacitracin (Bacitracin) 1 gm TOP Q12H [facility] Last Admin: 04/07/18 07:46 Dose: 1 applic Famotidine (Pepcid) 20 mg PO 1000,2200 [facility] Last Admin: 04/07/18 09:05 Dose: 20 mg Glipizide (Glucotrol) 5 mg PO ACB [facility] Last Admin: 04/07/18 10:43 Dose: 5 mg Heparin Sodium (Porcine) (Heparin) 5,000 units SC Q12 [facility] PRN Reason: Protocol Last Admin: 04/07/18 09:05 Dose: 5,000 units Piperacillin Sod/Tazobactam Sod (Zosyn 3.375 In Ns 100ml) 100 mls @ 200 mls/hr IVPB Q6 [facility] PRN Reason: Protocol Stop: 04/13/18 18:01 Last Admin: 04/07/18 11:36 Dose: 200 mls/hr Vancomycin HCl (Vancomycin 1gm) 1 gm in 250 mls @ 167 mls/hr IVPB Q12 [facility] PRN Reason: Protocol Last Admin: 04/07/18 09:04 Dose: 167 mls/hr Insulin Human Regular (Humulin R Med) 0 units SC ACHS [facility] PRN Reason: Protocol Last Admin: 04/07/18 11:36 Dose: 3 units Oxycodone/Acetaminophen (Percocet 5/325 Mg Tab) 1 tab PO Q4H PRN PRN Reason: Pain, moderate (4-7) Stop: 04/09/18 20:03 Last Admin: 04/07/18 08:39 Dose: 1 tab - Labs Labs: 04/07/18 06:15 04/07/18 06:15 - Constitutional Appears: Well - Head Exam Head Exam: ATRAUMATIC, NORMAL INSPECTION, NORMOCEPHALIC - Eye Exam Eye Exam: EOMI, Normal appearance, PERRL Pupil Exam: NORMAL ACCOMODATION, PERRL - ENT Exam ENT Exam: Mucous Membranes Moist, Normal Exam - Respiratory Exam Respiratory Exam: Clear to Ausculation Bilateral, NORMAL BREATHING PATTERN - Cardiovascular Exam Cardiovascular Exam: REGULAR RHYTHM, +S1, +S2. absent: Murmur - Rectal Exam Rectal Exam: Deferred - Extremities Exam Extremities Exam: Joint Swelling, Normal Capillary Refill, Pedal Edema, Tenderness (right medial thigh) Additional comments: right medial thigh open wound edematous, erythematous, no pus formation - Back Exam Back Exam: NORMAL INSPECTION - Neurological Exam Neurological Exam: Alert, Awake, CN II-XII Intact, Normal Gait, Oriented x3 - Psychiatric Exam Psychiatric exam: Normal Affect, Normal Mood - Skin Skin Exam: Dry, Intact, Normal Color, Warm Assessment and Plan - Assessment and Plan (Free Text) Assessment: 48 year old M with no significant PMHx who presents with painful open wound to the right medial thigh s/p traumatic injury with high pressure washing hose. Plan: Open right lower thigh wound - CT of the LE: soft tissue gas noted in the lateral, dorsal, and medial aspects of vastus medialis muscle. soft tissue swelling - Dressing changes, topical abx - Continue sozyn - Percocet q4h prn for pain - Continue to elevate the right lower extremity - Wound and blood Cx: no growth to date. continue f/u -As per surgery: no further surgical intervention at this present time -TDAP vaccine received DM2 -Patient did not see any PMD before -A1C 11.9 -Started on ISS -Started Glipizide 5mg GI ppx Protonix Heparin 5000 BID Heart healthy diet Fall precautions Case reviewed and discussed with Marcia Frost <Agusto Frost - Last Filed: 04/08/18 18:58> Objective - Vital Signs/Intake and Output Vital Signs (last 24 hours): Temp Pulse Resp BP Pulse Ox 98.3 F 71 20 117/81 96 04/08/18 14:00 04/08/18 14:00 04/08/18 14:00 04/08/18 14:00 04/08/18 14:00 Intake and Output: 04/08/18 04/08/18 06:59 18:59 Intake Total 480 Output Total 0 Balance 480 - Medications Medications: Current Medications Amoxicillin/Clavulanate Potassium (Augmentin 875 Mg-125 Mg Tab) 1 tab PO Q12 [facility] PRN Reason: Protocol Stop: 04/13/18 22:01 Bacitracin (Bacitracin) 1 gm TOP Q12H [facility] Last Admin: 04/08/18 09:23 Dose: 1 applic Doxycycline Hyclate (Doryx) 100 mg PO Q12 [facility] PRN Reason: Protocol Stop: 04/13/18 22:01 Famotidine (Pepcid) 20 mg PO 1000,2200 [facility] Last Admin: 04/08/18 09:23 Dose: 20 mg Glipizide (Glucotrol) 5 mg PO ACB [facility] Last Admin: 04/08/18 07:47 Dose: 5 mg Heparin Sodium (Porcine) (Heparin) 5,000 units SC Q12 [facility] PRN Reason: Protocol Last Admin: 04/08/18 09:23 Dose: 5,000 units Insulin Human Regular (Humulin R Med) 0 units SC ACHS [facility] PRN Reason: Protocol Last Admin: 04/08/18 17:01 Dose: 1 units Metformin HCl (Glucophage) 500 mg PO BID [facility] Last Admin: 04/08/18 17:01 Dose: 500 mg Oxycodone/Acetaminophen (Percocet 5/325 Mg Tab) 1 tab PO Q4H PRN PRN Reason: Pain, moderate (4-7) Stop: 04/09/18 20:03 Last Admin: 04/07/18 08:39 Dose: 1 tab - Labs Labs: 04/08/18 06:30 04/08/18 06:30 Attending/Attestation - Attestation I have personally seen and examined this patient.: Yes I have fully participated in the care of the patient.: Yes I have reviewed all pertinent clinical information, including history, physical exam and plan: Yes Notes (Text): 04/08/18 18:56 Attending note; Patient seen and examined with resident. Patient is alert and awake. Denies any fevers, chills. Patient is ambulating. Patient is a 48 year old Male with no significant PMHx who presents with painful open wound to the right medial thigh s/p traumatic injury with high pressure washing hose. Status post debridement on 04/06/18. Currently dressing change per surgery. Diabetes; started on glipizide. Monitor fingerstick closely. Dietary education given. Diabetic nurse education requested. Patient is educated about the new diagnosis. Leukocytosis resolved; currently on IV cefazolin. Cultures negative. ID evaluation appreciated. Upon discharge patient will follow-up with PMD in [place].
--- NOTE | 2018-04-07 13:56 | PN ---
Copied To: Rogelio John MD Attending MD: Rogelio John MD DATE: 04/07/2018 LOCATION: The patient is in room 566, bed 1. SUBJECTIVE: No fevers and no chills. The patient states he is able to walk around. PHYSICAL EXAMINATION: VITAL SIGNS: Temperature is 98, blood pressure is 112/60, respiratory rate of 20. HEENT: Examination is unremarkable. NECK: Supple. LUNGS: Have decreased breath sounds. HEART: Normal S1, S2. ABDOMEN: Soft, nontender. EXTREMITIES: Examination in the leg reveals no open ulcer and erythema rounded, nontender. No discharge. DATA: Laboratory examination reveals a white count of 14,500, it is down to normal at 6000, hemoglobin of 12. Chemistries are noted and the patient did have a procalcitonin of 0.06 and creatinine is 0.6. Urinalysis is noted. Microbiology reveals the right thigh wound culture is still pending. Blood cultures have no growth at 24 hours. Review of the orders reveal the patient to be on vancomycin and Zosyn. ASSESSMENT AND PLAN: This is a 48-year-old male status post trauma to the right medial thigh with a right thigh skin and skin soft tissue structure infection secondary to trauma, status post debridement, on vancomycin and Zosyn. I am waiting for cultures. May be able to switch to p.o. upon discharge once the culture results are available. Rogelio John MD
[2018-04-07 22:24] VITALS: RESP 20
[2018-04-08] MEDS: Piperacillin/Tazobact 3.375 gm 100 ML IVPB SCH ×2 (00:27→05:06)
[2018-04-08 07:29] LABS: BASO # 0.01 K/mm3 (0.0-2.0); BASO % 0.2 % (0.0-3.0); EOS # 0.2 (0.0-0.7); EOS % 3.3 % (1.5-5.0); GRAN # 2.72 (1.4-6.5); GRAN % 53.1 % (50.0-68.0); HEMOGLOBIN 12.9 g/dL (14.0-18.0); LYMPH # 1.9 (1.2-3.4); LYMPH % 37.7 % (22.0-35.0); MEAN CELL VOLUME 89.5 fl (80.0-105.0); MEAN CORPUSCULAR HEMOGLOBIN 30.8 pg (25.0-35.0); MEAN CORPUSCULAR HGB CONC 34.4 g/dl (31.0-37.0); MEAN PLATELET VOLUME 10.1 fl (7.0-11.0); MONO # 0.3 (0.1-0.6); MONO % 5.7 % (1.0-6.0); RBC 4.19 10^6/uL (3.5-6.1); RED CELL DISTRIBUTION WIDTH 13.1 % (11.5-14.5); WHITE BLOOD COUNT 5.1 10^3/ul (4.5-11.0)
[2018-04-08] MEDS: Insulin Reg-MEDIUM-Coverage SC SCH ×4 (07:47→21:49)
[2018-04-08 07:50] LABS: ALB/GLOB RATIO 1.2 (1.1-1.8); ALBUMIN 3.5 g/dL (3.0-4.8); ALT/SGPT 38 U/L (7-56); AST/SGOT 23 U/L (17-59); BLOOD UREA NITROGEN 10 mg/dL (7-21); CALCIUM 8.5 mg/dL (8.4-10.5); GFR AFRICAN-AMERICAN > 60; GFR NON-AFRICAN AMERICAN > 60
[2018-04-08] MEDS: Vancomycin 1gm in NS 250ml 1 GM/250 ML BAG IVPB SCH (09:22)
[2018-04-08] MEDS: Bacitracin Ointment 30 GM TUBE TOP SCH ×2 (09:23→21:40)
--- NOTE | 2018-04-08 10:08 | CP.PCM.PN ---
<Adam Perry - Last Filed: 04/08/18 16:05> Subjective - Date & Time of Evaluation Date of Evaluation: 04/08/18 Time of Evaluation: 06:55 - Subjective Subjective: Patient seen and examined at bedside. No significant overnight events. Patient' s right thigh pain is getting better. He is able to ambulate. He denies fever, chills, chest pain, palpitations, or urinary symptoms, N/V, SOB. Objective - Vital Signs/Intake and Output Vital Signs (last 24 hours): Temp Pulse Resp BP Pulse Ox 98.7 F 82 20 126/78 96 04/07/18 22:00 04/07/18 22:00 04/07/18 22:00 04/07/18 22:00 04/07/18 22:00 Intake and Output: 04/08/18 04/08/18 06:59 18:59 Intake Total 480 Output Total 0 Balance 480 - Medications Medications: Current Medications Bacitracin (Bacitracin) 1 gm TOP Q12H [facility] Last Admin: 04/08/18 09:23 Dose: 1 applic Famotidine (Pepcid) 20 mg PO 1000,2200 [facility] Last Admin: 04/08/18 09:23 Dose: 20 mg Glipizide (Glucotrol) 5 mg PO ACB [facility] Last Admin: 04/08/18 07:47 Dose: 5 mg Heparin Sodium (Porcine) (Heparin) 5,000 units SC Q12 [facility] PRN Reason: Protocol Last Admin: 04/08/18 09:23 Dose: 5,000 units Piperacillin Sod/Tazobactam Sod (Zosyn 3.375 In Ns 100ml) 100 mls @ 200 mls/hr IVPB Q6 [facility] PRN Reason: Protocol Stop: 04/13/18 18:01 Last Admin: 04/08/18 05:06 Dose: 200 mls/hr Vancomycin HCl (Vancomycin 1gm) 1 gm in 250 mls @ 167 mls/hr IVPB Q12 [facility] PRN Reason: Protocol Last Admin: 04/08/18 09:22 Dose: 167 mls/hr Insulin Human Regular (Humulin R Med) 0 units SC ACHS [facility] PRN Reason: Protocol Last Admin: 04/08/18 07:47 Dose: 3 units Metformin HCl (Glucophage) 500 mg PO BID [facility] Last Admin: 04/08/18 09:36 Dose: 500 mg Oxycodone/Acetaminophen (Percocet 5/325 Mg Tab) 1 tab PO Q4H PRN PRN Reason: Pain, moderate (4-7) Stop: 04/09/18 20:03 Last Admin: 04/07/18 08:39 Dose: 1 tab - Labs Labs: 04/08/18 06:30 04/08/18 06:30 - Constitutional Appears: Well, Non-toxic - Head Exam Head Exam: ATRAUMATIC, NORMAL INSPECTION, NORMOCEPHALIC - Eye Exam Eye Exam: EOMI, Normal appearance, PERRL Pupil Exam: NORMAL ACCOMODATION, PERRL - ENT Exam ENT Exam: Mucous Membranes Moist, Normal Exam - Neck Exam Neck Exam: Full ROM, Normal Inspection. absent: Lymphadenopathy - Respiratory Exam Respiratory Exam: Clear to Ausculation Bilateral, NORMAL BREATHING PATTERN - Cardiovascular Exam Cardiovascular Exam: REGULAR RHYTHM, +S1, +S2. absent: Murmur - GI/Abdominal Exam GI & Abdominal Exam: Soft, Normal Bowel Sounds. absent: Tenderness - Extremities Exam Additional comments: right medial thigh open wound edematous, erythematous, no pus formation - Back Exam Back Exam: NORMAL INSPECTION - Neurological Exam Neurological Exam: Alert, Awake, CN II-XII Intact, Normal Gait, Oriented x3 - Psychiatric Exam Psychiatric exam: Normal Affect, Normal Mood - Skin Skin Exam: Dry, Intact, Normal Color, Warm Assessment and Plan - Assessment and Plan (Free Text) Assessment: 48 year old M with no significant PMHx who presents with painful open wound to the right medial thigh s/p traumatic injury with high pressure washing hose. Plan: Open right lower thigh wound - CT of the LE: soft tissue gas noted in the lateral, dorsal, and medial aspects of vastus medialis muscle. soft tissue swelling - Dressing changes, topical abx - Continue sozyn - Percocet q4h prn for pain - Continue to elevate the right lower extremity - Wound and blood Cx: no growth to date. continue f/u -As per surgery: no further surgical intervention at this present time. Surgery signed off -TDAP vaccine received - Patient education to change wound dressing DM2 -Patient did not see any PMD before. New diagnosis -A1C 11.9 -Started on ISS -Started Glipizide 5mg -Started Metformn 500 BID -Diabetic education GI ppx Protonix Heparin 5000 BID Heart healthy diet Fall precautions <Agusto Frost - Last Filed: 04/08/18 18:59> Objective - Vital Signs/Intake and Output Vital Signs (last 24 hours): Temp Pulse Resp BP Pulse Ox 98.3 F 71 20 117/81 96 04/08/18 14:00 04/08/18 14:00 04/08/18 14:00 04/08/18 14:00 04/08/18 14:00 Intake and Output: 04/08/18 04/08/18 06:59 18:59 Intake Total 480 Output Total 0 Balance 480 - Medications Medications: Current Medications Amoxicillin/Clavulanate Potassium (Augmentin 875 Mg-125 Mg Tab) 1 tab PO Q12 [facility] PRN Reason: Protocol Stop: 04/13/18 22:01 Bacitracin (Bacitracin) 1 gm TOP Q12H [facility] Last Admin: 04/08/18 09:23 Dose: 1 applic Doxycycline Hyclate (Doryx) 100 mg PO Q12 [facility] PRN Reason: Protocol Stop: 04/13/18 22:01 Famotidine (Pepcid) 20 mg PO 1000,2200 [facility] Last Admin: 04/08/18 09:23 Dose: 20 mg Glipizide (Glucotrol) 5 mg PO ACB [facility] Last Admin: 04/08/18 07:47 Dose: 5 mg Heparin Sodium (Porcine) (Heparin) 5,000 units SC Q12 [facility] PRN Reason: Protocol Last Admin: 04/08/18 09:23 Dose: 5,000 units Insulin Human Regular (Humulin R Med) 0 units SC ACHS [facility] PRN Reason: Protocol Last Admin: 04/08/18 17:01 Dose: 1 units Metformin HCl (Glucophage) 500 mg PO BID [facility] Last Admin: 04/08/18 17:01 Dose: 500 mg Oxycodone/Acetaminophen (Percocet 5/325 Mg Tab) 1 tab PO Q4H PRN PRN Reason: Pain, moderate (4-7) Stop: 04/09/18 20:03 Last Admin: 04/07/18 08:39 Dose: 1 tab - Labs Labs: 04/08/18 06:30 04/08/18 06:30 Attending/Attestation - Attestation I have personally seen and examined this patient.: Yes I have fully participated in the care of the patient.: Yes I have reviewed all pertinent clinical information, including history, physical exam and plan: Yes Notes (Text): 04/08/18 18:58 Attending note; Patient seen and examined with resident. Patient is alert and awake. Denies any fevers, chills. Patient is ambulating. Patient is a 48 year old Male with no significant PMHx who presents with painful open wound to the right medial thigh s/p traumatic injury with high pressure washing hose. Status post debridement on 04/06/18. Currently dressing change per surgery. Right thigh swelling improved significantly. Erythema is improving. No significant discharge noted. Diabetes; started on glipizide. Metformin and added .Monitor fingerstick closely. Dietary education given. Diabetic nurse education requested. Patient is educated about the new diagnosis. Leukocytosis resolved; antibiotics changed to Augmentin and doxycycline. Cultures negative. ID evaluation appreciated. Possible discharge tomorrow. Upon discharge patient will follow-up with PMD in [place].
--- NOTE | 2018-04-08 12:53 | PN ---
Copied To: Rogelio John MD Attending MD: Rogelio John MD DATE: 04/08/2018 SUBJECTIVE: The patient is seen earlier today in 566, bed 1. The patient is doing well. No nausea or vomiting. No chest pain. PHYSICAL EXAMINATION: VITAL SIGNS: On exam, temperature is 98, blood pressure is 120/70, respiratory rate of 16. HEENT: Examination of HEENT is unremarkable. NECK: Supple. LUNGS: Have decreased breath sounds. HEART: Normal S1, S2. ABDOMEN: Soft, nontender. LABORATORY DATA: Laboratory examination reveals a white count of 5.1, hemoglobin of 12, BUN of 10, creatinine of 0.7. Urinalysis is noted. Microbiology reveals no growth in the right thigh and no growth in the urine and blood cultures. Review of orders reveals the patient to be on vancomycin and Zosyn. ASSESSMENT AND PLAN: A 48-year-old male with status post trauma to right medial thigh and right thigh skin and skin soft tissue infection secondary to trauma, status post debridement. Cultures negative. May use p.o. doxycycline and p.o. Augmentin, 875 p.o. of Augmentin x5 days and 100 mg of p.o. doxycycline x5 days. We will discontinue the vancomycin and Zosyn. The patient should follow up as outpatient with primary doctor with local wound care. Should have an human immunodeficiency virus test based on his age alone. Rogelio John MD
[2018-04-08] MEDS: Amoxicillin-Clav 875-125 mg Tab PO SCH (21:40)
--- NOTE | 2018-04-09 06:19 | CP.PCM.PN ---
Subjective - Date & Time of Evaluation Date of Evaluation: 04/09/18 Time of Evaluation: 05:55 - Subjective Subjective: Patient seen and examined at bedside. No significant overnight events. Patient' s right thigh pain is resolved. He is able to ambulate. Had regular bowel movement last night. He denies fever, chills, chest pain, palpitations, or urinary symptoms, N/V, SOB. Objective - Vital Signs/Intake and Output Vital Signs (last 24 hours): Temp Pulse Resp BP Pulse Ox 98.7 F 71 20 129/83 96 04/08/18 21:48 04/08/18 21:48 04/08/18 21:48 04/08/18 21:48 04/08/18 21:48 Intake and Output: 04/08/18 04/09/18 18:59 06:59 Intake Total 1680 Balance 1680 - Medications Medications: Current Medications Amoxicillin/Clavulanate Potassium (Augmentin 875 Mg-125 Mg Tab) 1 tab PO Q12 [facility] PRN Reason: Protocol Stop: 04/13/18 22:01 Last Admin: 04/08/18 21:40 Dose: 1 tab Bacitracin (Bacitracin) 1 gm TOP Q12H [facility] Last Admin: 04/08/18 21:40 Dose: 1 applic Doxycycline Hyclate (Doryx) 100 mg PO Q12 [facility] PRN Reason: Protocol Stop: 04/13/18 22:01 Last Admin: 04/08/18 21:40 Dose: 100 mg Famotidine (Pepcid) 20 mg PO 1000,2200 [facility] Last Admin: 04/09/18 00:28 Dose: 20 mg Glipizide (Glucotrol) 5 mg PO ACB [facility] Last Admin: 04/08/18 07:47 Dose: 5 mg Heparin Sodium (Porcine) (Heparin) 5,000 units SC Q12 [facility] PRN Reason: Protocol Last Admin: 04/08/18 21:41 Dose: 5,000 units Insulin Human Regular (Humulin R Med) 0 units SC ACHS [facility] PRN Reason: Protocol Last Admin: 04/08/18 21:49 Dose: Not Given Metformin HCl (Glucophage) 500 mg PO BID [facility] Last Admin: 04/08/18 17:01 Dose: 500 mg Oxycodone/Acetaminophen (Percocet 5/325 Mg Tab) 1 tab PO Q4H PRN PRN Reason: Pain, moderate (4-7) Stop: 04/09/18 20:03 Last Admin: 04/07/18 08:39 Dose: 1 tab - Labs Labs: 04/08/18 06:30 04/08/18 06:30 - Constitutional Appears: Well, No Acute Distress - Head Exam Head Exam: ATRAUMATIC, NORMAL INSPECTION, NORMOCEPHALIC - Eye Exam Eye Exam: EOMI, Normal appearance, PERRL Pupil Exam: NORMAL ACCOMODATION, PERRL - ENT Exam ENT Exam: Mucous Membranes Moist, Normal Exam - Neck Exam Neck Exam: Full ROM, Normal Inspection. absent: Lymphadenopathy - Respiratory Exam Respiratory Exam: Clear to Ausculation Bilateral, NORMAL BREATHING PATTERN - Cardiovascular Exam Cardiovascular Exam: REGULAR RHYTHM, +S1, +S2. absent: Murmur - GI/Abdominal Exam GI & Abdominal Exam: Soft, Normal Bowel Sounds. absent: Tenderness - Rectal Exam Rectal Exam: Deferred - Extremities Exam Additional comments: right medial lower thigh wound. dressing applied. no erythema. edema is resolving. - Neurological Exam Neurological Exam: Alert, Awake, CN II-XII Intact, Normal Gait, Oriented x3 - Psychiatric Exam Psychiatric exam: Normal Affect, Normal Mood - Skin Skin Exam: Dry, Intact, Normal Color, Warm - Additional Findings Additional findings: skin wound right lower thigh Assessment and Plan - Assessment and Plan (Free Text) Assessment: 48 year old Male with no significant PMHx who presents with painful open wound to the right medial thigh s/p traumatic injury with high pressure washing hose. Plan: Open right lower thigh wound - CT of the LE: soft tissue gas noted in the lateral, dorsal, and medial aspects of vastus medialis muscle. soft tissue swelling - Dressing changes, topical abx - Discontinue IV antibiotics - Patient started on po doxy and augmentin - Percocet q4h prn for pain - Continue to elevate the right lower extremity - Wound and blood Cx: no growth to date -As per surgery: no further surgical intervention at this present time. Surgery signed off -TDAP vaccine received - Patient education for wound dressing at home -As per ID consult Dr John: started on po doxy and augmentin and continue for 5 days, HIV testing ordered, follow up in outpatient wound clinic DM2 -New diagnosis. Patient did not see any PMD before. -A1C 11.9 -Started on ISS -Started Glipizide 5mg -Added Metformn 500 BID -Diabetic education -Dietary counseling discussed with patient GI ppx Protonix Heparin 5000 BID Heart healthy diet Fall precautions Case reviewed and discussed with Dr Frost
[2018-04-09 06:24] LABS: BASO # 0.02 K/mm3 (0.0-2.0); BASO % 0.3 % (0.0-3.0); EOS # 0.3 (0.0-0.7); EOS % 3.9 % (1.5-5.0); GRAN # 3.39 (1.4-6.5); GRAN % 52.3 % (50.0-68.0); HEMOGLOBIN 14.1 g/dL (14.0-18.0); LYMPH # 2.4 (1.2-3.4); LYMPH % 37.6 % (22.0-35.0); MEAN CELL VOLUME 89.6 fl (80.0-105.0); MEAN CORPUSCULAR HEMOGLOBIN 31.1 pg (25.0-35.0); MEAN CORPUSCULAR HGB CONC 34.6 g/dl (31.0-37.0); MEAN PLATELET VOLUME 10.6 fl (7.0-11.0); MONO # 0.4 (0.1-0.6); MONO % 5.9 % (1.0-6.0); RBC 4.54 10^6/uL (3.5-6.1); RED CELL DISTRIBUTION WIDTH 13.2 % (11.5-14.5)
[2018-04-09 06:29] LABS: WHITE BLOOD COUNT 6.5 10^3/ul (4.5-11.0)
[2018-04-09 06:56] LABS: ALB/GLOB RATIO 1.2 (1.1-1.8); ALBUMIN 3.9 g/dL (3.0-4.8); ALT/SGPT 34 U/L (7-56); AST/SGOT 34 U/L (17-59); BLOOD UREA NITROGEN 11 mg/dL (7-21); CALCIUM 9.1 mg/dL (8.4-10.5); GFR AFRICAN-AMERICAN > 60; GFR NON-AFRICAN AMERICAN > 60
[2018-04-09 07:53] VITALS: BP 114/77; PULSE 69; TEMP 98.3; O2SAT 97
[2018-04-09] MEDS: Amoxicillin-Clav 875-125 mg Tab PO SCH (09:24)
[2018-04-09] MEDS: Insulin Reg-MEDIUM-Coverage SC SCH (09:25)
[2018-04-09] MEDS: Bacitracin Ointment 30 GM TUBE TOP SCH (09:32)
[2018-04-09] MEDS ORDERED: Bacitracin 500 Units/gm Oint Foilpak UD ONE (09:32)
--- NOTE | 2018-04-09 13:37 | CP.PCM.DIS ---
<Cierra Perryony - Last Filed: 04/09/18 13:41> Provider - Provider Date of Admission: 04/06/18 15:51 Attending physician: Agusto Frost MD Primary care physician: none Consults: surgery infectious disease Time Spent in preparation of Discharge (in minutes): 45 Hospital Course - Lab Results Lab Results: Micro Results 04/06/18 21:37 Urine Urine Culture - Final No Growth (<1,000 CFU/ML) Most Recent Lab Values WBC 6.5 10^3/ul (4.5-11.0) D 04/09/18 06:00 RBC 4.54 10^6/uL (3.5-6.1) 04/09/18 06:00 Hgb 14.1 g/dL (14.0-18.0) 04/09/18 06:00 Hct 40.7 % (42.0-52.0) L 04/09/18 06:00 MCV 89.6 fl (80.0-105.0) 04/09/18 06:00 MCH 31.1 pg (25.0-35.0) 04/09/18 06:00 MCHC 34.6 g/dl (31.0-37.0) 04/09/18 06:00 RDW 13.2 % (11.5-14.5) 04/09/18 06:00 Plt Count 194 10^3/uL (120.0-450.0) 04/09/18 06:00 MPV 10.6 fl (7.0-11.0) 04/09/18 06:00 Gran % 52.3 % (50.0-68.0) 04/09/18 06:00 Lymph % (Auto) 37.6 % (22.0-35.0) H 04/09/18 06:00 Scurry % (Auto) 5.9 % (1.0-6.0) 04/09/18 06:00 Eos % (Auto) 3.9 % (1.5-5.0) 04/09/18 06:00 Baso % (Auto) 0.3 % (0.0-3.0) 04/09/18 06:00 Gran # 3.39 (1.4-6.5) 04/09/18 06:00 Lymph # (Auto) 2.4 (1.2-3.4) 04/09/18 06:00 Scurry # (Auto) 0.4 (0.1-0.6) 04/09/18 06:00 Eos # (Auto) 0.3 (0.0-0.7) 04/09/18 06:00 Baso # (Auto) 0.02 K/mm3 (0.0-2.0) 04/09/18 06:00 Sodium 141 mmol/L (132-148) 04/09/18 06:00 Potassium 4.0 mmol/L (3.6-5.0) 04/09/18 06:00 Chloride 107 mmol/L (98-107) 04/09/18 06:00 Carbon Dioxide 26 mmol/L (21-33) 04/09/18 06:00 Anion Gap 13 (10-20) 04/09/18 06:00 BUN 11 mg/dL (7-21) 04/09/18 06:00 Creatinine 0.7 mg/dl (0.8-1.5) L 04/09/18 06:00 Est GFR ( Amer) > 60 04/09/18 06:00 Est GFR (Non-Af Amer) > 60 04/09/18 06:00 POC Glucose (mg/dL) 135 mg/dL (65-110) H 04/09/18 11:04 Random Glucose 168 mg/dL (70-110) H 04/09/18 06:00 Hemoglobin A1c 11.9 % (4.2-6.5) H 04/06/18 06:20 Calcium 9.1 mg/dL (8.4-10.5) 04/09/18 06:00 Phosphorus 2.7 mg/dL (2.5-4.5) 04/06/18 07:30 Magnesium 1.9 mg/dL (1.7-2.2) 04/06/18 07:30 Total Bilirubin 0.4 mg/dL (0.2-1.3) 04/09/18 06:00 AST 34 U/L (17-59) 04/09/18 06:00 ALT 34 U/L (7-56) 04/09/18 06:00 Alkaline Phosphatase 100 U/L (38-126) 04/09/18 06:00 Total Creatine Kinase 307 U/L (35-230) H 04/06/18 08:00 CK-MB (CK-2) 1.2 ng/mL (0.0-3.6) 04/06/18 08:00 CK-MB (CK-2) % Cancelled 04/05/18 20:05 Total Protein 7.1 g/dL (5.8-8.3) 04/09/18 06:00 Albumin 3.9 g/dL (3.0-4.8) 04/09/18 06:00 Globulin 3.2 gm/dL 04/09/18 06:00 Albumin/Globulin Ratio 1.2 (1.1-1.8) 04/09/18 06:00 Triglycerides 133 mg/dL (35-160) 04/06/18 07:30 Cholesterol 187 mg/dL (130-200) 04/06/18 07:30 LDL Cholesterol Direct 129 mg/dL (0-129) 04/06/18 07:30 HDL Cholesterol 30 mg/dL (29-60) 04/06/18 07:30 Procalcitonin 0.06 NG/ML (0.19-0.49) L 04/06/18 06:20 Urine Color Light yellow (YELLOW) 04/06/18 21:37 Urine Appearance Clear (CLEAR) 04/06/18 21:37 Urine pH 6.5 (4.7-8.0) 04/06/18 21:37 Ur Specific [place] 1.010 (1.005-1.035) 04/06/18 21:37 Urine Protein Negative mg/dL (<30 mg/dL) 04/06/18 21:37 Urine Glucose (UA) 500 mg/dL (NEGATIVE) H 04/06/18 21:37 Urine Ketones Negative mg/dL (NEGATIVE) 04/06/18 21:37 Urine Blood Trace-intact (NEGATIVE) H 04/06/18 21:37 Urine Nitrate Negative (NEGATIVE) 04/06/18 21:37 Urine Bilirubin Negative (NEGATIVE) 04/06/18 21:37 Urine Urobilinogen 0.2 E.U./dL (<1 E.U./dL) 04/06/18 21:37 Ur Leukocyte Esterase Negative Maddi/uL (NEGATIVE) 04/06/18 21:37 Urine RBC 0 - 2 /hpf (0-2) 04/06/18 21:37 Urine WBC 0 - 2 /hpf (0-6) 04/06/18 21:37 Ur Epithelial Cells 0 - 2 /hpf (0-5) 04/06/18 21:37 Urine Bacteria Few (NEG) 04/06/18 21:37 - Hospital Course Hospital Course: On admission: 48 year old Male with no significant PMHx who presents with painful open wound to the right medial thigh s/p traumatic injury with high pressure washing hose. TDAP vaccine received on Emergency department. Hospital course: Patient got admitted to medical floor for open right lower thigh wound management. CT scan of the lower extremity showed soft tissue gas noted in the lateral, dorsal, and medial aspects of vastus medialis muscle and soft tissue swelling. Surgery consulted, wound debridement, topical antibiotic and wound dressing done and no further surgical intervention at this present time. Percocet q4h prn for pain. As per infectious disease Dr John, patient started on IV antibiotics vancomycin and .Wound and blood Cultures were negative. HIV testing ordered. IV antibiotics discontinue. Patient started on oral doxycycline and augmentin. Patient was found to have HgA1C 11.9 and high blood suger.Patient did not see any PMD before. Diabetes mellitus is a new diagnosis. Patient started on Insulin Sliding Scale. Started Glipizide 5mg, Metformn 500 BID added later. Diabetic education education was provided to the patient. Dietary counseling discussed with patient as well. Patient education for wound dressing at home. Patient is medically optimized., no complaints of pain. He was ready for discharge home Upon discharge: Please apply for medicaid and establish a PMD and follow up with your doctore within 4 days of discharge Patient to follow up in outpatient wound clinic Patient to take newly prescribed diabetes medications, Metformin and Glipizide as prescribed Please also take antibiotics as prescribed for total of five more days Please check and keep logs of your blood sugar Please keep wound clean and change dressing daily as taught If symptoms reoccur, return to nearest emergency department Discharge planning was conducted with patient including outpatient follow up, medication reconciliation, and signs and symptoms to be aware of for return to emergency department. Patient was in understanding and able to recall instructions back to primary team. Patient was deemed to be medically optimized for discharge by consultants involved in her care as well as her primary medical team. For further details regarding hospital stay please refer to full chart. - Date & Time of H&P Date of H&P: 04/09/18 Time of H&P: 13:46 Discharge Exam - Head Exam Head Exam: ATRAUMATIC, NORMAL INSPECTION, NORMOCEPHALIC - Eye Exam Eye Exam: EOMI, Normal appearance, PERRL Pupil Exam: NORMAL ACCOMODATION, PERRL - Respiratory Exam Respiratory Exam: Clear to PA & Lateral, NORMAL BREATHING PATTERN - Cardiovascular Exam Cardiovascular Exam: REGULAR RHYTHM, +S1, +S2 - GI/Abdominal Exam GI & Abdominal Exam: Normal Bowel Sounds - Rectal Exam Rectal Exam: Deferred - Extremities Exam Extremities exam: full ROM, normal capillary refill, normal inspection Additional comments: right medial lower thigh open wound. wound is clean, no erythema, non tender, no signs of infection - Back Exam Back exam: FULL ROM - Neurological Exam Neurological exam: Alert, CN II-XII Intact, Normal Gait, Oriented x3, Reflexes Normal - Psychiatric Exam Psychiatric exam: Normal Affect, Normal Mood - Skin Skin Exam: Dry, Intact, Normal Color, Warm Additional comments: right lower thigh skin wound Discharge Plan - Discharge Medications Prescriptions: Amoxicillin [Amoxil 500 mg Cap] 500 mg PO Q8H #15 cap Doxycycline Hyclate [Doryx] 100 mg PO Q12 #10 cap GlipiZIDE [Glucotrol] 5 mg PO ACB #30 tab metFORMIN [glucOPHAGE] 500 mg PO BID #60 tab metroNIDAZOLE [Flagyl] 500 mg PO Q8H #15 tab - Follow Up Plan Condition: STABLE Disposition: HOME/ ROUTINE Instructions: Wound Care Additional Instructions: Please take your antibiotics as prescribed for total of 5 more days. Please check and keep logs of your blood sugar. Please apply for medicaid through [place] or [place] and establish primary care to follow up for blood glucose and diabetes management. Please keep wound clean and change dressing daily as taught before. Please also take tour new diabetes medications as prescribed. Please return to emergency room if symptoms reoccur. <Agusto Frost - Last Filed: 04/09/18 15:43> Provider - Provider Date of Admission: 04/06/18 15:51 Attending physician: Agusto Frost MD Hospital Course - Lab Results Lab Results: Micro Results 04/06/18 21:37 Urine Urine Culture - Final No Growth (<1,000 CFU/ML) Most Recent Lab Values WBC 6.5 10^3/ul (4.5-11.0) D 04/09/18 06:00 RBC 4.54 10^6/uL (3.5-6.1) 04/09/18 06:00 Hgb 14.1 g/dL (14.0-18.0) 04/09/18 06:00 Hct 40.7 % (42.0-52.0) L 04/09/18 06:00 MCV 89.6 fl (80.0-105.0) 04/09/18 06:00 MCH 31.1 pg (25.0-35.0) 04/09/18 06:00 MCHC 34.6 g/dl (31.0-37.0) 04/09/18 06:00 RDW 13.2 % (11.5-14.5) 04/09/18 06:00 Plt Count 194 10^3/uL (120.0-450.0) 04/09/18 06:00 MPV 10.6 fl (7.0-11.0) 04/09/18 06:00 Gran % 52.3 % (50.0-68.0) 04/09/18 06:00 Lymph % (Auto) 37.6 % (22.0-35.0) H 04/09/18 06:00 Scurry % (Auto) 5.9 % (1.0-6.0) 04/09/18 06:00 Eos % (Auto) 3.9 % (1.5-5.0) 04/09/18 06:00 Baso % (Auto) 0.3 % (0.0-3.0) 04/09/18 06:00 Gran # 3.39 (1.4-6.5) 04/09/18 06:00 Lymph # (Auto) 2.4 (1.2-3.4) 04/09/18 06:00 Scurry # (Auto) 0.4 (0.1-0.6) 04/09/18 06:00 Eos # (Auto) 0.3 (0.0-0.7) 04/09/18 06:00 Baso # (Auto) 0.02 K/mm3 (0.0-2.0) 04/09/18 06:00 Sodium 141 mmol/L (132-148) 04/09/18 06:00 Potassium 4.0 mmol/L (3.6-5.0) 04/09/18 06:00 Chloride 107 mmol/L (98-107) 04/09/18 06:00 Carbon Dioxide 26 mmol/L (21-33) 04/09/18 06:00 Anion Gap 13 (10-20) 04/09/18 06:00 BUN 11 mg/dL (7-21) 04/09/18 06:00 Creatinine 0.7 mg/dl (0.8-1.5) L 04/09/18 06:00 Est GFR ( Amer) > 60 04/09/18 06:00 Est GFR (Non-Af Amer) > 60 04/09/18 06:00 POC Glucose (mg/dL) 135 mg/dL (65-110) H 04/09/18 11:04 Random Glucose 168 mg/dL (70-110) H 04/09/18 06:00 Hemoglobin A1c 11.9 % (4.2-6.5) H 04/06/18 06:20 Calcium 9.1 mg/dL (8.4-10.5) 04/09/18 06:00 Phosphorus 2.7 mg/dL (2.5-4.5) 04/06/18 07:30 Magnesium 1.9 mg/dL (1.7-2.2) 04/06/18 07:30 Total Bilirubin 0.4 mg/dL (0.2-1.3) 04/09/18 06:00 AST 34 U/L (17-59) 04/09/18 06:00 ALT 34 U/L (7-56) 04/09/18 06:00 Alkaline Phosphatase 100 U/L (38-126) 04/09/18 06:00 Total Creatine Kinase 307 U/L (35-230) H 04/06/18 08:00 CK-MB (CK-2) 1.2 ng/mL (0.0-3.6) 04/06/18 08:00 CK-MB (CK-2) % Cancelled 04/05/18 20:05 Total Protein 7.1 g/dL (5.8-8.3) 04/09/18 06:00 Albumin 3.9 g/dL (3.0-4.8) 04/09/18 06:00 Globulin 3.2 gm/dL 04/09/18 06:00 Albumin/Globulin Ratio 1.2 (1.1-1.8) 04/09/18 06:00 Triglycerides 133 mg/dL (35-160) 04/06/18 07:30 Cholesterol 187 mg/dL (130-200) 04/06/18 07:30 LDL Cholesterol Direct 129 mg/dL (0-129) 04/06/18 07:30 HDL Cholesterol 30 mg/dL (29-60) 04/06/18 07:30 Procalcitonin 0.06 NG/ML (0.19-0.49) L 04/06/18 06:20 Urine Color Light yellow (YELLOW) 04/06/18 21:37 Urine Appearance Clear (CLEAR) 04/06/18 21:37 Urine pH 6.5 (4.7-8.0) 04/06/18 21:37 Ur Specific [place] 1.010 (1.005-1.035) 04/06/18 21:37 Urine Protein Negative mg/dL (<30 mg/dL) 04/06/18 21:37 Urine Glucose (UA) 500 mg/dL (NEGATIVE) H 04/06/18 21:37 Urine Ketones Negative mg/dL (NEGATIVE) 04/06/18 21:37 Urine Blood Trace-intact (NEGATIVE) H 04/06/18 21:37 Urine Nitrate Negative (NEGATIVE) 04/06/18 21:37 Urine Bilirubin Negative (NEGATIVE) 04/06/18 21:37 Urine Urobilinogen 0.2 E.U./dL (<1 E.U./dL) 04/06/18 21:37 Ur Leukocyte Esterase Negative Maddi/uL (NEGATIVE) 04/06/18 21:37 Urine RBC 0 - 2 /hpf (0-2) 04/06/18 21:37 Urine WBC 0 - 2 /hpf (0-6) 04/06/18 21:37 Ur Epithelial Cells 0 - 2 /hpf (0-5) 04/06/18 21:37 Urine Bacteria Few (NEG) 04/06/18 21:37 HIV 1&2 Ag/Ab, 4th Gen Nonreactive (Nonreactive) 04/08/18 07:00 Attending/Attestation - Attestation I have personally seen and examined this patient.: Yes I have fully participated in the care of the patient.: Yes I have reviewed all pertinent clinical information, including history, physical exam and plan: Yes Notes (Text): 04/09/18 15:40 Attending note; Patient seen and examined with resident. Patient is alert and awake. Denies any fevers, chills. Patient is ambulating. right leg wound is healing. Patient is a 48 year old Male with no significant PMHx who presents with painful open wound to the right medial thigh s/p traumatic injury with high pressure washing hose. Status post debridement on 04/06/18. Right thigh swelling improved significantly. Erythema is improving. wound is healing. No significant discharge noted. Diabetes; started on glipizide and Metformin. fingerstick improved. Dietary education given. Diabetic nurse education requested. Patient is educated about the new diagnosis. Leukocytosis resolved; antibiotics changed to Augmentin and doxycycline. Cultures negative. ID evaluation appreciated. discharge home today. continue local wound care. Upon discharge patient will follow-up with PMD in [place]. 04/09/18 15:43 04/09/18 15:43
--- NOTE | 2018-04-09 18:07 | CP.PCM.PN ---
Subjective - Date & Time of Evaluation Date of Evaluation: 04/09/18 Time of Evaluation: 12:05 - Subjective Subjective: Ready to go home, feels better, improved pain on the right thigh, no fevers. Objective - Vital Signs/Intake and Output Vital Signs (last 24 hours): Temp Pulse Resp BP Pulse Ox 98.3 F 69 20 114/77 97 04/09/18 07:51 04/09/18 07:51 04/09/18 07:51 04/09/18 07:51 04/09/18 07:51 Intake and Output: 04/09/18 04/09/18 06:59 18:59 Intake Total 1680 Balance 1680 - Medications Medications: Current Medications Amoxicillin/Clavulanate Potassium (Augmentin 875 Mg-125 Mg Tab) 1 tab PO Q12 [facility] PRN Reason: Protocol Stop: 04/13/18 22:01 Last Admin: 04/08/18 21:40 Dose: 1 tab Bacitracin (Bacitracin) 1 gm TOP Q12H [facility] Last Admin: 04/08/18 21:40 Dose: 1 applic Doxycycline Hyclate (Doryx) 100 mg PO Q12 [facility] PRN Reason: Protocol Stop: 04/13/18 22:01 Last Admin: 04/08/18 21:40 Dose: 100 mg Famotidine (Pepcid) 20 mg PO 1000,2200 [facility] Last Admin: 04/09/18 00:28 Dose: 20 mg Glipizide (Glucotrol) 5 mg PO ACB [facility] Last Admin: 04/08/18 07:47 Dose: 5 mg Heparin Sodium (Porcine) (Heparin) 5,000 units SC Q12 [facility] PRN Reason: Protocol Last Admin: 04/08/18 21:41 Dose: 5,000 units Insulin Human Regular (Humulin R Med) 0 units SC ACHS [facility] PRN Reason: Protocol Last Admin: 04/08/18 21:49 Dose: Not Given Metformin HCl (Glucophage) 500 mg PO BID [facility] Last Admin: 04/08/18 17:01 Dose: 500 mg Oxycodone/Acetaminophen (Percocet 5/325 Mg Tab) 1 tab PO Q4H PRN PRN Reason: Pain, moderate (4-7) Stop: 04/09/18 20:03 Last Admin: 04/07/18 08:39 Dose: 1 tab - Labs Labs: 04/09/18 06:00 04/09/18 06:00 - Constitutional Appears: Chronically Ill - Head Exam Head Exam: NORMAL INSPECTION - ENT Exam ENT Exam: Mucous Membranes Moist - Neck Exam Neck Exam: absent: Meningismus - Respiratory Exam Respiratory Exam: absent: Rales - Cardiovascular Exam Cardiovascular Exam: +S1, +S2 - GI/Abdominal Exam GI & Abdominal Exam: Soft. absent: Tenderness Assessment and Plan - Assessment and Plan (Free Text) Plan: Assessment right thigh skin and skin structure infection associated with trauma, S/P debridement Plan Continue Doxycycline and Augmentin for another 5 days with outpatient follow up with Surgery and PMD
== END 2018-04-09 13:53 | disposition home or self-care (01) | DRG 605 ==
LOC: ED 18:15 → ERH 04-06 01:05 → 5RNO 04-06 04:35 → OBSVTOIN 04-06 15:51
PROVIDERS: ADMIT Hospitalist; ATTEND Internal Medicine
PROC: 3E0234Z Introduction of Serum, Toxoid and Vaccine into Muscle, Percutaneous Approach (ICD-10-PCS; 2018-04-05)
PROC: 0HDHXZZ Extraction of Right Upper Leg Skin, External Approach (ICD-10-PCS; principal; 2018-04-06)
DX: S71.131A Puncture wound without foreign body, right thigh, initial encounter (principal); L08.9 Local infection of the skin and subcutaneous tissue, unspecified; E11.9 Type 2 diabetes mellitus without complications; F12.90 Cannabis use, unspecified, uncomplicated; F17.210 Nicotine dependence, cigarettes, uncomplicated; D72.829 Elevated white blood cell count, unspecified; X58.XXXA Exposure to other specified factors, initial encounter; Y93.H9 Activity, other involving exterior property and land maintenance, building and construction; Y92.89 Other specified places as the place of occurrence of the external cause; Y99.0 Civilian activity done for income or pay; Z23 Encounter for immunization